=== PATIENT | female | born 1960 | race Caucasian/White ===

== ENCOUNTER 2018-06-11 19:18 | Emergency (ER) | payer BC ==
[2018-06-11 19:33] VITALS: RESP 18
[2018-06-11] MEDS ORDERED: KETOROLAC TROMETHAMINE 30 MG/ML SOL ONE (19:47)
[2018-06-11] MEDS ORDERED: HYDROMORPHONE 1 MG/ML SYRINGE ONE (19:47)
[2018-06-11] MEDS ORDERED: KETOROLAC TROMETHAMINE 30 MG/ML SOL IV ONE (19:48)
[2018-06-11] MEDS ORDERED: HYDROMORPHONE 1 MG/ML SYRINGE IV PRN (19:48)
[2018-06-11] MEDS ORDERED: APAP/HYDROCODONE 1 EACH TABLET PO ONE (23:03)
[2018-06-11] MEDS ORDERED: APAP/HYDROCODONE 1 EACH TABLET ONE (23:10)
[2018-06-12 03:13] VITALS: BP 118/74; PULSE 78; TEMP 97.9; O2SAT 99
== END 2018-06-11 23:15 | disposition home or self-care (01) ==
LOC: ED 19:18
DX: S82.855A Nondisplaced trimalleolar fracture of left lower leg, initial encounter for closed fracture (principal); S43.102A Unspecified dislocation of left acromioclavicular joint, initial encounter; V89.0XXA Person injured in unspecified motor-vehicle accident, nontraffic, initial encounter; M25.512 Pain in left shoulder; R68.84 Jaw pain
CPT/HCPCS: 70150; 70486; 73030; 73610; 96374; 96375; 99284; 99285; G0390; J1885; A9270-GY; E0114; J1170

== ENCOUNTER 2018-06-13 11:23 | Outpatient (CLI) | payer BC ==
[2018-06-13] MEDS ORDERED: METOCLOPRAMIDE HYDROCHLORIDE 5 MG/ML SOL ONE (13:20)
[2018-06-13] MEDS ORDERED: ONDANSETRON HCL 4 MG/2 ML SOL ONE (13:20)
[2018-06-13] MEDS ORDERED: PROPOFOL 500 MG/50 ML EMU IV ONE (13:20)
[2018-06-13] MEDS ORDERED: DEXAMETHASONE 20 MG/5 ML (4 MG/ML SOL) ONE (13:20)
[2018-06-13] MEDS ORDERED: MIDAZOLAM 2 MG/2 ML SOL ONE (13:21)
[2018-06-13] MEDS ORDERED: FENTANYL 100MCG/2ML SOL ONE (13:21)
[2018-06-13] MEDS ORDERED: BUPIVACAINE HCL 0.25% MPF 30 ML SOL INFIL ONE ×2 (15:21)
[2018-06-13] MEDS ORDERED: KETOROLAC TROMETHAMINE 30 MG/ML SOL ONE (15:31)
[2018-06-13 18:05] VITALS: RESP 16
[2018-06-13 18:38] VITALS: TEMP 98.1
[2018-06-13 20:05] VITALS: BP 99/64; PULSE 83; O2SAT 93
== END 2018-06-13 20:15 | disposition home or self-care (01) ==
LOC: SURG 11:23
PROVIDERS: ATTEND Orthopaedic Surgery
DX: S82.852G Displaced trimalleolar fracture of left lower leg, subsequent encounter for closed fracture with delayed healing (principal)
CPT/HCPCS: 73600; 76000; 99070; J1100; J1885; J2250; J2405; J2765; J3010; J2001; J2704

== ENCOUNTER 2018-07-11 09:56 | Outpatient (CLI) | payer BC ==
[2018-06-13 20:05] VITALS: O2SAT 93
== END 2018-07-11 09:57 | disposition home or self-care (01) ==
LOC: CONVCARE 09:56
PROVIDERS: ATTEND Orthopaedic Surgery
DX: S82.852D Displaced trimalleolar fracture of left lower leg, subsequent encounter for closed fracture with routine healing (principal)
CPT/HCPCS: 73610

== ENCOUNTER 2018-08-08 11:07 | Outpatient (CLI) | payer BC ==
[2018-06-13 20:05] VITALS: O2SAT 93
== END 2018-08-08 11:08 | disposition home or self-care (01) ==
LOC: CONVCARE 11:07
PROVIDERS: ATTEND Orthopaedic Surgery
DX: S82.852D Displaced trimalleolar fracture of left lower leg, subsequent encounter for closed fracture with routine healing (principal)
CPT/HCPCS: 73610